=== PATIENT | male | born 2000 | race Caucasian/White ===

== ENCOUNTER 2021-11-29 11:23 | Emergency (ER) | payer BC, OTHER ==
[~2021-11-29] VITALS: Ht 177.8 cm; Wt 127.0 kg
[2021-11-29 11:37] VITALS: BP 113/62
[2021-11-29] MEDS ORDERED: OXYM30SP26 BOTHNSTRLS (11:56)
[2021-11-29] MEDS ORDERED: FLUT16SP15 BOTHNSTRLS (11:56)
== END 2021-11-29 13:12 | disposition home or self-care (01) ==
LOC: ER 12:28
DX: R04.0 Epistaxis (principal)
CPT/HCPCS: 99282; 99283